=== PATIENT | male | born 1980 | race African-American/Black ===

== ENCOUNTER 2017-12-08 18:24 | Emergency (ER) | payer SELFPAY ==
[~2017-12-08] VITALS: Ht 190.5 cm; Wt 150.0 kg
[2017-12-08 18:30] VITALS: BP 134/82; PULSE 100; RESP 16; TEMP 99.3; O2SAT 95
[2017-12-08] MEDS ORDERED: CLIN300C5 PO (20:26)
--- NOTE | 2017-12-08 20:27 | PD ---
HPI Chief Complaint: Skin Problem Time Seen by Provider: 18:37 Travel History International Travel<30 days: No Contact w/Intl Traveler<30days: No Traveled to known affect area: No History of Present Illness HPI 37-year-old male here with possible skin infection of the right foot. Patient reports a small abrasion to the right fourth toe dorsal aspect caused by a poorly fitting shoe. He reports the last several days areas become increasingly more painful and red. He denies fever or chills. He reports pain within the area is palpated. Slightly relieved with rest. Symptom severity is moderate. PFSH Past Medical History Medical History: Denies Significant Hx Cardiovascular Problems: Yes (hx of htn not on meds) Diminished Hearing: No Tetanus Vaccination: < 5 Years Influenza Vaccination: No ?: Not Past Surgical History Surgical History: No Previous Surgery Social History Alcohol Use: No (VERY RARE) Tobacco Use: Yes (PACK A WEEK) Allergies-Medications (Allergen,Severity, Reaction): Coded Allergies: penicillin G (Verified Allergy, Intermediate, hives, 12/08/17) Uncoded Allergies: all cillins (Allergy, Intermediate, hives, 12/08/17) Review of Systems Except as stated in HPI: all other systems reviewed are Neg General / Constitutional: No: Fever Physical Exam Narrative GENERAL: Alert and well-appearing 37-year-old male SKIN: Warm and dry. Erythema noted to the dorsal aspect of the right foot. HEAD: Normocephalic. EYES: No injection or drainage. NECK: Supple. CARDIOVASCULAR: Regular rate and rhythm. RESPIRATORY: Breath sounds equal bilaterally. No accessory muscle use. GASTROINTESTINAL: Abdomen soft, non-tender, nondistended. MUSCULOSKELETAL: No cyanosis. Right lower extremity: Small abrasion to the dorsal aspect of the fourth toe. Mild swelling and notable erythema to the third and fourth toe extending 3 cm into the dorsal aspect of the foot. No fluctuance, induration, or lymphangitis. No bony tenderness. Normal sensation. 2+ dorsal pedis pulse. Brisk cap refill. Data Data Last Documented VS Vital Signs Date Time Temp Pulse Resp B/P (MAP) Pulse Ox O2 Delivery O2 Flow Rate FiO2 12/08/17 18:30 99.3 100 16 134/82 (99) 95 MDM Medical Decision Making Medical Screen Exam Complete: Yes Emergency Medical Condition: Yes Differential Diagnosis Cellulitis, abscess, osteomyelitis unlikely Narrative Course 37-year-old male here with cellulitis to the right foot. Patient is nontoxic- appearing. Vital signs are stable. He has no bony tenderness. Patient be treated with clindamycin and instructed to follow-up with his primary doctor for recheck. Strict return precautions were discussed. Patient verbalizes understanding and agrees to plan. Diagnosis Primary Impression: Cellulitis of right foot Referrals: Primary Care Physician Additional Instructions: Antibiotics as directed. Follow-up with her primary doctor. Return if he developed new or worsening symptoms such as fever, increasing redness, swelling, or pain. Scripts Clindamycin (Clindamycin) 300 Mg Cap 300 MG PO Q6H for Infection for 10 Days, #40 CAP 0 Refills Prov: Penelope Garcia 12/08/17 Disposition: 01 DISCHARGE HOME Condition: Stable Penelope Garcia Dec 08, 2017 20:27
[2017-12-08] MEDS ORDERED: CLINDAMYCIN 150 MG CAP PO ONE (20:30)
== END 2017-12-08 20:37 | disposition home or self-care (01) ==
LOC: PHEFT 18:24
DX: L03.115 Cellulitis of right lower limb (principal); F17.210 Nicotine dependence, cigarettes, uncomplicated; Z88.0 Allergy status to penicillin
CPT/HCPCS: 99283